=== PATIENT | female | born 1970 | race Caucasian/White ===

== ENCOUNTER 2018-10-18 10:22 | Emergency (ER) | payer BC ==
[2018-10-18 10:32] VITALS: BP 139/70
--- NOTE | 2018-10-18 10:42 | UC ---
Complaint Female HPI - HPI Summary HPI Summary: 38-year-old female with burning on urination starting this morning. She denies any fever or chills. She is not presently sexually active. She denies any abnormal vaginal discharge. - History Of Current Complaint Chief Complaint: [facility]U Stated Complaint: URINARY ISSUE Time Seen by Provider: 10/18/18 10:35 Hx Obtained From: Patient Hx Last Menstrual Period: 10/18/18 ?: No Onset/Duration: Gradual Onset Timing: Intermittent Severity Initially: Mild Severity Currently: Mild Pain Intensity: 5 Character: Burning Aggravating Factor(s): Urination Alleviating Factor(s): Nothing Associated Signs And Symptoms: Positive: Negative - Allergies/Home Medications Allergies/Adverse Reactions: Allergies Allergy/AdvReac Type Severity Reaction Status Date / Time No Known Allergies Allergy Verified 10/18/18 10:33 Home Medications: Home Medications Hydrochlorothiazide TAB* [Hydrodiuril TAB*] 1 tab PO DAILY 10/18/18 [History Confirmed 10/18/18] Losartan/Hydrochlorothiazide [Losartan-Hctz 50-12.5 mg Tab] 1 tab PO DAILY 10/18 [History Confirmed 10/18/18] PMH/Surg Hx/FS Hx/Imm Hx Previously Healthy: Yes Endocrine History: Dyslipidemia Cardiovascular History: Hypertension Respiratory History: Asthma - Surgical History Surgical History: Yes Surgery Procedure, Year, and Place: clot from foot,appy,d/c - Family History Known Family History: Positive: Non-Contributory - Social History Alcohol Use: None Substance Use Type: None Smoking Status (MU): Never Smoked Tobacco Review of Systems All Other Systems Reviewed And Are Negative: Yes Genitourinary: Positive: Dysuria, Frequency, Urgency. Negative: Vaginal/Penile Burning, Vaginal/Penile Itching, Vaginal/Penile Discharge, Vaginal/Penile Pain, Vaginal/Penile Tenderness Is Patient Immunocompromised?: No Physical Exam Triage Information Reviewed: Yes Appearance: Well-Appearing, No Pain Distress, Well-Nourished Vital Signs: Initial Vital Signs Temp 97.6 F 10/18/18 10:29 Pulse 74 10/18/18 10:29 Resp 15 10/18/18 10:29 BP 139/70 10/18/18 10:29 Pulse Ox 100 10/18/18 10:29 Vital Signs Reviewed: Yes ENT: Positive: Hearing grossly normal, Pharynx normal, TMs normal, Uvula midline Neck: Positive: Supple, Nontender, No Lymphadenopathy Respiratory: Positive: Lungs clear, Normal breath sounds, No respiratory distress, No accessory muscle use Cardiovascular: Positive: RRR, No Murmur, Pulses Normal, Brisk Capillary Refill Abdomen Description: Positive: Nontender, No Organomegaly, Soft. Negative: CVA Tenderness (R), CVA Tenderness (L) Bowel Sounds: Positive: Present Musculoskeletal Exam: Normal Neurological Exam: Normal Psychological Exam: Normal Skin Exam: Normal Complaint Female Dx - Course Course Of Treatment: She is comfortable here. Her urinalysis was positive for large blood and large leukocytes and nitrates positive. Going to treat her with Pyridium as well as Macrobid 100 mg by mouth twice a day 5 days. She is to go to the emergency room for any worsening symptoms with fever, chills, vomiting and unable keep the medication down. - Differential Dx/Diagnosis Provider Diagnosis: UTI (urinary tract infection) Discharge - Sign-Out/Discharge Documenting (check all that apply): Patient Departure All imaging exams completed and their final reports reviewed: No Studies - Discharge Plan Condition: Good Disposition: HOME Prescriptions: Nitrofurantoin Monohyd/M-Cryst [Macrobid 100 mg Capsule] 100 mg PO BID 5 Days # 10 cap Phenazopyridine TAB* [Pyridium 100 mg TAB*] 100 mg PO TID PRN 2 Days #6 tab PRN Reason: Pain Patient Education Materials: Urinary Tract Infection in Women (ED) Referrals: Faraz Alicea MD [Primary Care Provider] - Additional Instructions: Increase fluids. Go to the emergency room if you develop fever, chills, back pain, unable keep the medication down. Follow-up with your primary care provider in 2 or 3 days if no improvement. - Billing Disposition and Condition Condition: GOOD Disposition: Home
== END 2018-10-18 10:50 | disposition home or self-care (01) ==
LOC: UCEAST 10:22
DX: N39.0 Urinary tract infection, site not specified (principal); E78.5 Hyperlipidemia, unspecified; I10 Essential (primary) hypertension; J45.909 Unspecified asthma, uncomplicated
CPT/HCPCS: 81002; 87077; 87086; 87186; 99202; G0463